=== PATIENT | male | born 1975 | race Caucasian/White ===

== ENCOUNTER 2017-12-01 19:21 | Emergency (ER) | payer OTHER ==
[2017-12-01 19:30] VITALS: BP 138/81; PULSE 99; TEMP 98.9; O2SAT 98
[2017-12-01] MEDS ORDERED: Tetanus/Diphtheria Toxoids 0.5 ml Syringe IM ONE ×2 (19:45→19:53)
--- NOTE | 2017-12-01 21:01 | C.PDOC ---
History Of Present Illness 42 year old male presents to the ED for evaluation of left toe contusion which he developed prior to arrival. Patient reports he dropped a paper weight onto his left 1st toe and notes a laceration to the area. He denies obvious deformity , weakness or sensorivascular deficit of left foot. Time Seen by Provider: 12/01/17 19:35 Chief Complaint (Nursing): Abnormal Skin Integrity History Per: Patient History/Exam Limitations: no limitations Onset/Duration Of Symptoms: Hrs Current Symptoms Are (Timing): Still Present Location Of Injury: Left: Foot (1st toe ) Quality Of Symptoms: Painful Additional History Per: Patient Past Medical History Reviewed: Historical Data, Nursing Documentation, Vital Signs Vital Signs: Last Vital Signs Temp 98.9 F 12/01/17 19:27 Pulse 99 H 12/01/17 19:27 Resp 20 12/01/17 21:11 BP 138/81 12/01/17 19:27 Pulse Ox 98 12/01/17 21:09 - Medical History PMH: No Chronic Diseases Surgical History: No Surg Hx Family History: States: Unknown Family Hx - Social History Hx Tobacco Use: Yes Hx Alcohol Use: No Hx Substance Use: No - Immunization History Hx Tetanus Toxoid Vaccination: No Hx Influenza Vaccination: No Hx Pneumococcal Vaccination: No Review Of Systems Skin: Positive for: Other (left toe contusion ) Neurological: Negative for: Weakness, Numbness Physical Exam - Physical Exam Appears: Well, Non-toxic, No Acute Distress Skin: Normal Color, Warm, Other (Left 1st toe: superificial laceration to dorsal aspect 1st proximal phalanx 1.5 cm length, no edema, no erythema, no discharges) Extremity: Normal ROM (Left foot), Capillary Refill (less than 2sec to Left foot ), No Deformity, No Swelling Neurological/Psych: Oriented x3, Normal Speech, Normal Motor, Normal Sensation, Normal Reflexes ED Course And Treatment O2 Sat by Pulse Oximetry: 98 (on RA) Pulse Ox Interpretation: Normal Progress Note: Left foot great toe XR ordered. Tetanus IM administered. On re- eval, pt is afebrile, hemodynamicaly stable. NOn-toxic. Ambulatory in ED with stable gait. Left foot: laceration repaired with skin adhesive, sterilr dressing. FAROM, no neurovascular deficits, no deformity. Imaging review- no acute findings. Tetanus given. Pt advised. ref. to f/u with Podiatry in 2-3 dyas for re-eval. return if any new chnages. Laceration - Laceration Repair Left 1st toe Wound Length (In cm): 1.5cm Description Of Wound: Linear Wound Cleansed With: Betadine Wound Examination: Irrigated With Saline, No FB With Wound Exploration, No Tendon Injury With Wound Exploration Wound Closure: Steri Strips Wound Complexity: Simple Disposition Counseled Patient/Family Regarding: Studies Performed, Diagnosis, Need For Followup, Rx Given - Disposition Referrals: [facility] [Outside] Disposition: HOME/ ROUTINE Disposition Time: 20:30 Condition: STABLE Additional Instructions: keep wound dry for 3-4 days Avoid prolong walking, keep foot elevated Follow up with Electrode Cleaner on Monday from noon-3 pm for further evaluation and treatment. return if any new changes. Instructions: Laceration Repair With Glue (DC), Toe Injury Forms: [facility] (Slovenian) - Clinical Impression Clinical Impression: Contusion, toe, Laceration of toe - PA / CREDIT COLLECTIONS ANALYST / Resident Statement MD/DO has reviewed & agrees with the documentation as recorded. - Scribe Statement The provider has reviewed the documentation as recorded by the Scribe (Tatiana Matrinez) All medical record entries made by the Scribe were at my direction and personally dictated by me. I have reviewed the chart and agree that the record accurately reflects my personal performance of the history, physical exam, medical decision making, and the department course for this patient. I have also personally directed, reviewed, and agree with the discharge instructions and disposition.
[2017-12-01 21:12] VITALS: RESP 20
--- NOTE | 2017-12-03 09:35 | RAD ---
PROCEDURE: Radiographs of the left great toe. TECHNIQUE:: AP radiograph of the left foot, with oblique and lateral view of the left great toe. COMPARISON: None. FINDINGS: BONES: No acute fracture or destructive bony lesion identified. Small exostosis seen related to the medial base of the distal phalanx left great toe JOINTS: Normal. SOFT TISSUES: Normal. OTHER FINDINGS: None. IMPRESSION: No acute fracture or dislocation left great toe appears small exostosis noted as discussed above.
== END 2017-12-01 21:11 | disposition home or self-care (01) ==
LOC: C.ER 19:21
DX: S91.112A Laceration without foreign body of left great toe without damage to nail, initial encounter (principal); S90.112A Contusion of left great toe without damage to nail, initial encounter; W22.8XXA Striking against or struck by other objects, initial encounter